=== PATIENT | male | born 1995 | race Caucasian/White ===

== ENCOUNTER 2018-08-13 17:59 | Emergency (ER) | payer BC ==
[2018-08-13 21:08] VITALS: BP 121/63
== END 2018-08-13 22:25 | disposition left against medical advice (07) ==
LOC: ED 17:59
DX: R10.9 Unspecified abdominal pain (principal); Z53.21 Procedure and treatment not carried out due to patient leaving prior to being seen by health care provider

== ENCOUNTER 2018-08-14 08:45 | Emergency (ER) | payer BC ==
[2018-08-14] MEDS ORDERED: Lidocaine 2% VISCOUS* 15 ML UDC PO ONE (09:32)
[2018-08-14] MEDS ORDERED: Al Hydrox/Mg Hydrox/Simet LIQ* 30 ML UDC PO ONE (09:32)
--- NOTE | 2018-08-14 09:42 | UC ---
Abdominal Pain Male HPI - HPI Summary HPI Summary: Patient is a 22 y/o male who presents to the c/o abdominal pain for 1 week. He states he first thought the pain was due to gas or muscle soreness, but the pain has not resolved. The pain is described as located in his upper abdomen, 2/ 10 in severity, and worse after eating. Patient also c/o fatigue, nausea, lightheadedness, burping, sinus pressure, headache, and mild testicular pain. He denies any vomiting, diarrhea, ear pain, tooth pain, dysuria, or rash. He has not taken any OTC medications for the pain, and Tums has not helped. 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 He is currently a student at [employer]. Pt had Ray previously. Patient recently got over a cold and had mono 3 months ago. Patients medication reviewed this visit. - History of Current Complaint Chief Complaint: UCAbdominalPain Stated Complaint: UPPER ABD PAIN Time Seen by Provider: 08/14/18 09:19 Hx Obtained From: Patient Onset/Duration: Gradual Onset, Lasting Days - 1 week, Still Present Timing: Constant Severity Currently: Mild Pain Intensity: 2 Pain Scale Used: 0-10 Numeric Location: Epigastric Radiates: No Aggravating Factor(s): Food Alleviating Factor(s): Nothing Associated Signs And Symptoms: Positive: Nausea, Other - Fatigue, lightheadedness, headache, testicular pain. Negative: Urinary Symptoms, Vomiting, Diarrhea - Allergies/Home Medications Allergies/Adverse Reactions: Allergies Allergy/AdvReac Type Severity Reaction Status Date / Time bee venom protein (honey bee) Allergy Swelling Verified 08/14/18 08:57 PMH/Surg Hx/FS Hx/Imm Hx Previously Healthy: Yes Endocrine History: Other Other Endocrine History: NEGATIVE: DM Cardiovascular History: Other Other Cardiovascular History: NEGATIVE: HTN - Surgical History Surgical History: Yes Surgery Procedure, Year, and Place: cyst on wrist removed - Family History Known Family History: Positive: Other Family History: R&NC - Social History Occupation: Student Lives: Dormitory/Roommates Alcohol Use: Occasionally Substance Use Type: Marijuana Substance Use Comment - Amount & Last Used: 4 times/week Smoking Status (MU): Never Smoked Tobacco Review of Systems Constitutional: Fatigue Skin: Negative - Rash ENT: Negative - Dental pain, ear pain, Sinus Pain/Tenderness - Pressure Gastrointestinal: Negative - Vomiting, diarrhea, Abdominal Pain, Nausea, Other - Burping Genitourinary: Negative - Dysuria, Other - Testicular pain Neurological: Headache, Other - Lightheadedness All Other Systems Reviewed And Are Negative: Yes Physical Exam - Summary Physical Exam Summary: Vital Signs Reviewed: Yes A+Ox3, no distress. eaily changes position, climb onto exam table, lay and sit up Eyes: Conjunctiva Clear, KEVEN. EOM intact and full ENT: Hearing grossly normal TM x 2 clear, mmoist, uvula midline, no exudate, no erythema Neck: Positive: Supple Respiratory: Positive: No respiratory distress, No accessory muscle use + CTA throughout no w/r Cardiovascular: RRR nl s1, s2 no m/r CBT <2 sec abd soft + BS, no guarding, no rebound, soft. Pt with mild discomfort epigastric are with direct palp. No guarding. Musculoskeletal Exam: MCCOY x 4 without difficulty Strength Intact, ROM Intact Neurological: Positive: Alert, + sensation throughout Psychological: Positive: Normal Response To Family Skin: Positive: no rash, no ecchymosis Triage Information Reviewed: Yes Vital Signs: Initial Vital Signs Temp 97.5 F 08/14/18 08:50 Pulse 67 08/14/18 08:50 Resp 16 08/14/18 08:50 BP 134/69 08/14/18 08:50 Pulse Ox 98 08/14/18 08:50 Re-Evaluation - Re-Evaluation First Eval Re-Evaluation Time: 10:30 Change: Improved Comment: Feels better while sitting up, worse when lying down after GI cocktail. reviewed with pt bland diet. Rx pepcid. Maalox prn. recommend [facility] f/u. labs today Abd Pain Male Course/Dx - Course Course Of Treatment: pt with epigsatric doscomfort and mild nausea x 1 week. No recent trauma. on exam VSS. Pt with tenderness epigastric area no guarding or distension. pt appears will hydrated. will give GI cocktail, check labs. anticipate discharge home. recommend f/u with [facility] - strict return precautions or go to ED. Pt comfortable and agreement with plan - Differential Dx/Clinical Impression Provider Diagnoses: epigastric discomfort. Gastritis coleenley Discharge - Sign-Out/Discharge Documenting (check all that apply): Patient Departure - Discharge All imaging exams completed and their final reports reviewed: No Studies - Discharge Plan Condition: Stable Disposition: HOME Prescriptions: Famotidine TAB* [Pepcid 20 MG TAB*] 20 mg PO DAILY #1 tab Patient Education Materials: Gastritis (ED), Gastroesophageal Reflux Disease ( ED) Forms: *School Release Referrals: [facility] @ [facility] [Outside] (Call for appointment in 5-7 days) Raymon Burciaga MD [Medical Doctor] - Additional Instructions: - Take pepcid twice a day as prescribed - Eat small, frequent meals. Avoid spicy food, acidic foods, citric food, tomato based food, carbonated beverages, and alcohol - Avoid lying down for at least 1 hour after eating - Okay to take Tums or Maalox as needed for burning - You had blood work drawn today - these results will take 24 hours to return - if you have concerning results, you will receive a call from a care rehabilitation team lead - If you have uncontrolled pain, vomiting, fever or any other concerns it is recommended you go to the emergency department for further evaluation - It is recommended you contact your [facility] to schedule a follow- up appointment. You have also been given a referral to the trim attacher - Billing Disposition and Condition Condition: STABLE Disposition: Home - Attestation Statements Document Initiated by Indioibe: Yes Documenting Scribe: Raya Dias Provider For Whom Linda is Documenting (Include Credential): Edilia Rosa MD Scribe Attestation: Raya López, scribed for Edilia Rosa MD on 08/18/18 at 1558. Scribe Documentation Reviewed: Yes Provider Attestation: The documentation as recorded by the Raya rodriguez accurately reflects the service I personally performed and the decisions made by me, Edilia Rosa MD
[2018-08-14 10:51] VITALS: BP 127/71
[2018-08-14 12:39] LABS: ABS Basophils 0 10^3/ul (0-0.2); ABS Eosinophils 0.1 10^3/ul (0-0.6); ABS Lymphocytes 1.5 10^3/ul (1.0-4.8); ABS Monocytes 0.3 10^3/ul (0-0.8); ABS Neutrophils 1.4 10^3/ul (1.5-7.7); ABS Nucleated RBC 0 10^3/ul; Eosinophil % 3.2 % (0-6); Hematocrit 49 % (42-52); Hemoglobin 16.9 g/dl (14.0-18.0); Lymphocyte % 45.2 % (25-47); Mean Corpuscular HGB Conc 34 g/dl (31-36); Mean Corpuscular Hemoglobin 30 pg (27-31); Mean Corpuscular Volume 88 fL (80-94); Mean Platelet Volume 8.5 um3 (7.4-10.4); Nucleated Red Blood Cells % 0.2; Platelet Count 153 10^3/ul (150-450); Red Blood Count 5.57 10^6/ul (4.00-5.40); Red Cell Distribution Width 13 % (10.5-15); White Blood Count 3.3 10^3/ul (3.5-10.8)
[2018-08-14 12:47] LABS: EGFR Non-African American 123.2 (>60)
--- NOTE | 2018-08-15 07:37 | UC ---
- Progress Note Progress Note: PLS CALL PT. LABS WITH SLIGHT ABNORMALITIES IN BLOOD COUNT AND LFTS WHICH ARE LIKELY REACTIVE. RECOMMEND REPEAT IN SEVERAL DAYS. - DANK BURR MD Re-Evaluation - Re-Evaluation First Eval Re-Evaluation Time: 10:30 Change: Improved Comment: Feels better while sitting up, worse when lying down. Discharge - Sign-Out/Discharge Documenting (check all that apply): Post-Discharge Follow Up All imaging exams completed and their final reports reviewed: No Studies - Discharge Plan Condition: Stable Disposition: HOME Prescriptions: Famotidine TAB* [Pepcid 20 MG TAB*] 20 mg PO DAILY #1 tab Patient Education Materials: Gastritis (ED), Gastroesophageal Reflux Disease ( ED) Forms: *School Release Referrals: [facility] @ [facility] [Outside] (Call for appointment in 5-7 days) Raymon Burciaga MD [Medical Doctor] - Additional Instructions: - Take pepcid twice a day as prescribed - Eat small, frequent meals. Avoid spicy food, acidic foods, citric food, tomato based food, carbonated beverages, and alcohol - Avoid lying down for at least 1 hour after eating - Okay to take Tums or Maalox as needed for burning - You had blood work drawn today - these results will take 24 hours to return - if you have concerning results, you will receive a call from a care senior project leader/team lead - If you have uncontrolled pain, vomiting, fever or any other concerns it is recommended you go to the emergency department for further evaluation - It is recommended you contact your [facility] to schedule a follow- up appointment. You have also been given a referral to the low vision therapist - Billing Disposition and Condition Condition: STABLE Disposition: Home
== END 2018-08-14 10:52 | disposition home or self-care (01) ==
LOC: UCEAST 08:45
DX: R10.13 Epigastric pain (principal); R11.0 Nausea; R53.83 Other fatigue; R42 Dizziness and giddiness; J34.89 Other specified disorders of nose and nasal sinuses; R51 Headache; N50.819 Testicular pain, unspecified; Z91.030 Bee allergy status
CPT/HCPCS: 36415; 80053; 81003; 83690; 85025; 99212; A9270-GY; G0463